=== PATIENT | female | born 1945 | race Caucasian/White ===

== ENCOUNTER → 2021-05-11 08:41 | Outpatient (BNVA) | payer SELFPAY | PROVIDERS: Visit Provider Internal Medicine | DX: Z02.79 Encounter for issue of other medical certificate (principal) ==

== ENCOUNTER → 2021-11-15 09:07 | Outpatient (BNVA) | payer SELFPAY | PROVIDERS: Visit Provider Internal Medicine | DX: Z02.79 Encounter for issue of other medical certificate (principal) ==

== ENCOUNTER → 2022-05-09 08:41 | Outpatient (BNVA) | payer SELFPAY | PROVIDERS: Visit Provider Internal Medicine | DX: Z02.79 Encounter for issue of other medical certificate (principal) ==

== ENCOUNTER 2022-09-06 09:23 | Emergency (ER) | payer MEDICARE, SELFPAY ==
--- NOTE | ~2022-09-06 | XR_ITS ---
EXAMINATION: XR CHEST CLINICAL INFORMATION: Productive cough COMPARISON: None TECHNIQUE: Frontal view of the chest was obtained. FINDINGS: The lungs are fairly well-expanded and clear of acute pneumonic process. The heart size and pulmonary vascularity is normal. There is mild dextro scoliosis dorsal lumbar spine. There is mild spondylosis as well. No lytic or sclerotic process seen. XR/XR chest 1V IMPRESSION: 1. No acute cardiopulmonary process seen. 2. Mild dextro scoliosis dorsal lumbar spine.
[2022-09-06 09:41] VITALS: BP 141/63; PULSE 80; RESP 18; TEMP 36.4; O2SAT 97; BMI 20.1
--- NOTE | 2022-09-06 09:46 | PC.NURSE ---
patient a&ox3, vss, family at bedside, pt awaiting provider
--- NOTE | 2022-09-06 09:57 | ECG_ITS ---
Test Reason : SOB Blood Pressure : / mmHG Vent. Rate : 080 BPM Atrial Rate : 080 BPM P-R Int : 128 ms QRS Dur : 088 ms QT Int : 394 ms P-R-T Axes : 074 064 067 degrees QTc Int : 454 ms Sinus rhythm with occasional Premature ventricular complexes Low voltage QRS RSR' or QR pattern in V1 suggests right ventricular conduction delay Abnormal ECG No previous ECGs available Referred By: Kanika Collazo Electronically Signed By:ROMINA CASTANO MD
--- NOTE | 2022-09-06 09:58 | ED.GENADULT ---
HPI - General Adult General Chief complaint: General Medical Stated complaint: Weakness/Shaky/Fatigued Time Seen by Provider: 09/06/22 09:56 Source: patient Mode of arrival: ambulatory Limitations: no limitations History of Present Illness HPI narrative: 76 yo female with history of DM and HTN who presents to the ER for evaluation of generalized weakness, fatigue, upset stomach/nausea for the last 1 week. She states last week she had a productive cough with white phelgm. Once that resolved after several days she started feeling weak, tired and nauseated. She dry heaved a couple of times last week but never vomited. She has had decreased PO intake. No abdominal pain just upset stomach and no appetite. She has been sleeping more during the day as well as at night. She denies any focal weakness. No fever or chills at home. No chest pain, abdominal pain, SOB, urinary symptoms. No known sick contacts. MD complaint: generalized weakness Onset (ago): week(s) (1) Severity: moderate Relieving factors: rest Exacerbating factors: movement Associated symptoms: cough, loss of appetite, malaise, nausea/vomiting and weakness Treatments prior to arrival: none Related Data Previous Rx's Medication Instructions Recorded cefuroxime axetil 250 mg tablet 250 mg PO BID #10 tabs 09/06/22 ondansetron 4 mg disintegrating 4 mg PO Q8H PRN nausea and 09/06/22 tablet vomiting #10 tabs Allergies Allergy/AdvReac Type Severity Reaction Status Date / Time No Known Allergies Allergy Verified 09/06/22 09:40 Review of Systems Review of Systems: Constitutional: No Fever, No Chills ENT/Mouth: No sore throat, No Rhinorrhea, No Swallowing Difficulty Cardiovascular: No Chest Pain, No SOB, No Orthopnea, No Edema Respiratory: + Cough, + Sputum, No Wheezing, No dyspnea Gastrointestinal: + Nausea, No Vomiting, No Diarrhea, No abdominal Pain, No Hematochezia, No Melena Genitourinary: No Dysuria, No Urinary Frequency, No Hematuria Musculoskeletal: No joint pain, No Myalgias Skin: No Skin Lesions, No rash Neuro: + Weakness, No Numbness, No Dizziness, No Headache Psych: No Anxiety/Panic, No Depression Heme/Lymph: No Bruising, No Lymphadenopathy Endocrine: No Polyuria, No Polydipsia [facility] Past Medical History Medical History (Updated 09/06/22 @ 12:42 by KIRBY Sheppard) Back pain Diabetes Hypertension Social History Social History Alcohol intake: never Smoked in Last 30 Days: Yes Use of substances other than those prescribed or required for medical reasons: No Advance Directives: No Advance Directives Information Provided: Yes Physical Exam ED Vital Signs: Vital Signs - 24 hr 09/06/22 09:41 09/06/22 10:21 09/06/22 11:47 Temperature 97.6 F 98.1 F Pulse Rate 80 68 Respiratory Rate 18 18 18 Blood Pressure 141/63 H 136/60 Pulse Oximetry 97 93 Oxygen Delivery Method Room Air Room Air BMI result Body Mass Index 20.1 Appearance: Alert. Oriented X3. No acute distress. Eyes: Pupils equal, round and reactive to light. ENT: Pharynx normal. Neck: Normal inspection. Neck supple. CVS: Normal heart rate and rhythm. Pulses normal. Respiratory: No respiratory distress. Breath sounds normal. Abdomen: Soft and nontender. +BS x4 Skin: Skin warm and dry. Normal skin color. Normal skin turgor. No rashes. Extremities: No lower extremity edema. Neuro: Oriented X 3. No motor deficit. No sensory deficit. Normal speech and cognition. CN II-XII intact. Course Course Course Narrative: 76-year-old female with history of diabetes and hypertension who presents to the ER for evaluation of generalized weakness, lethargy, nausea, productive cough at home for the last 1 week. On arrival to the ER she is hemodynamically stable, saturating well on room air. Her physical exam is unremarkable. Will plan to workup by getting basic labs, chest x-ray, COVID swab, flu swab & urinalysis. IVF and Zofran have been ordered. Reevaluation(s) Reevaluation #1: Patient is feeling better. Her lab workup is unremarkable. No leukocytosis. Chest x-ray is clear. She is negative for COVID and flu. Urinalysis is showing trace leukocyte esterase, indicating possible urinary tract infection. Pending urine culture, will start empiric Ceftin. Patient lives home alone and would like to be discharged home. She reports her daughter checks in on her as well as a neighbor in the building. She feels safe being discharged home. She will follow-up with her PCP. She is stable for DC home. Medications Administered Discontinued Medications Generic Name Dose Route Start Last Admin Trade Name Leonor PRN Reason Stop Dose Admin Lactated Ringer's 1,000 mls @ 999 mls/hr 09/06/22 10:00 09/06/22 10:17 Lr IV 09/06/22 11:00 999 mls/hr .Q1H1M HEATHER Administration Ondansetron HCl 4 mg 09/06/22 10:54 09/06/22 11:16 Ondansetron Hcl 4 Mg/2 Ml Vial IVPUSH 09/06/22 10:55 4 mg ONCE ONE Administration Medical Decision Making Lab Data Result diagrams: 09/06/22 10:14 09/06/22 10:14 Labs: Lab Results 09/06/22 09/06/22 09/06/22 Range/Units 10:14 10:14 10:14 WBC 6.7 (4.8-10.8) X10*3/uL RBC 3.85 L (4.20-5.50) X10*6/uL Hgb 12.5 (12.0-16.0) g/dl Hct 37.1 (37.0-47.0) % MCV 96.4 (80.0-98.0) fL MCH 32.5 (27.0-33.0) pg MCHC 33.7 (31.0-35.0) g/dl RDW 12.4 (11.0-16.0) % Plt Count 269 (160-400) X10*3/uL MPV 9.4 (9.4-12.3) fL Immature Gran % (Auto) 0.4 (0.0-0.4) % Neut % (Auto) 64.6 (45-73) % Lymph % (Auto) 27.1 (20-40) % Ward % (Auto) 7.0 (2-11) % Eos % (Auto) 0.3 (0-4) % Baso % (Auto) 0.6 (0-2) % Lymph # (Auto) 1.8 (1.2-4.9) X10*3/uL Ward # (Auto) 0.5 (0.1-1.2) X10*3/uL Eos # (Auto) 0.0 (0.0-0.4) X10*3/uL Baso # (Auto) 0.0 (0.0-0.2) X10*3/uL Abs Immat Gran (auto) 0.03 (0.00-0.03) X10*3/uL Absolute Neuts (auto) 4.3 (2.0-8.3) x10*3/uL Absolute Nucleated RBC 0.000 (0.0-0.012) X10*3/uL Nucleated RBC % (auto) 0.0 (0.0-0.2) /100WBC VBG pH (7.32-7.43) VBG pCO2 mmHg VBG pO2 mmHg VBG HCO3 (22-26) mmol/L VBG O2 Saturation % VBG Base Excess mmol/L Sodium 135 (135-145) mmol/L Potassium 4.1 (3.3-5.1) mmol/L Chloride 98 (96-108) mmol/L Carbon Dioxide 24 (22-29) mmol/L Anion Gap 17 (12-20) BUN 17 H (9-16) mg/dL Creatinine 0.73 (0.5-1.4) mg/dL Estim Creat Clear Calc 60.4 Estimated GFR > 60 Random Glucose 166 H (60-115) mg/dL Calcium 8.7 (8.4-10.2) mg/dL Magnesium 1.8 (1.6-2.6) mg/dL Total Bilirubin 0.6 (0.0-1.0) mg/dL Direct Bilirubin 0.2 (0.0-0.5) mg/dL AST 21 (5-31) U/L ALT 8 (0-31) U/L Alkaline Phosphatase 41 (39-117) U/L B-Natriuretic Peptide 28 (<100) pg/mL Total Protein 6.2 L (6.5-8.0) g/dL Albumin 3.8 (3.5-5.0) g/dL Procalcitonin ng/mL Urine Color Urine Appearance Urine pH (5.0-9.0) Ur Specific [place] (1.005-1.025) Urine Protein (Neg-Trace) mg/dL Urine Glucose (UA) (Negative) mg/dL Urine Ketones (Negative) mg/dL Urine Blood (Negative) Urine Nitrite (Negative) Ur Leukocyte Esterase (Negative) Urine RBC (0-2) /HPF Urine WBC (0-5) /HPF Ur Squamous Epith Cells (0-2) /HPF Urine Bacteria (None Seen) Hyaline Casts (0-2) /LPF COVID-19 (DARINEL) (Negative) COVID-19 Clin Com Influenza Type A (PAVEL) (Negative) Influenza Type B (PAVEL) (Negative) Influenza A & B Note 09/06/22 09/06/22 09/06/22 Range/Units 10:14 10:14 10:14 WBC (4.8-10.8) X10*3/uL RBC (4.20-5.50) X10*6/uL Hgb (12.0-16.0) g/dl Hct (37.0-47.0) % MCV (80.0-98.0) fL MCH (27.0-33.0) pg MCHC (31.0-35.0) g/dl RDW (11.0-16.0) % Plt Count (160-400) X10*3/uL MPV (9.4-12.3) fL Immature Gran % (Auto) (0.0-0.4) % Neut % (Auto) (45-73) % Lymph % (Auto) (20-40) % Ward % (Auto) (2-11) % Eos % (Auto) (0-4) % Baso % (Auto) (0-2) % Lymph # (Auto) (1.2-4.9) X10*3/uL Ward # (Auto) (0.1-1.2) X10*3/uL Eos # (Auto) (0.0-0.4) X10*3/uL Baso # (Auto) (0.0-0.2) X10*3/uL Abs Immat Gran (auto) (0.00-0.03) X10*3/uL Absolute Neuts (auto) (2.0-8.3) x10*3/uL Absolute Nucleated RBC (0.0-0.012) X10*3/uL Nucleated RBC % (auto) (0.0-0.2) /100WBC VBG pH (7.32-7.43) VBG pCO2 mmHg VBG pO2 mmHg VBG HCO3 (22-26) mmol/L VBG O2 Saturation % VBG Base Excess mmol/L Sodium (135-145) mmol/L Potassium (3.3-5.1) mmol/L Chloride (96-108) mmol/L Carbon Dioxide (22-29) mmol/L Anion Gap (12-20) BUN (9-16) mg/dL Creatinine (0.5-1.4) mg/dL Estim Creat Clear Calc Estimated GFR Random Glucose (60-115) mg/dL Calcium (8.4-10.2) mg/dL Magnesium (1.6-2.6) mg/dL Total Bilirubin (0.0-1.0) mg/dL Direct Bilirubin (0.0-0.5) mg/dL AST (5-31) U/L ALT (0-31) U/L Alkaline Phosphatase (39-117) U/L B-Natriuretic Peptide (<100) pg/mL Total Protein (6.5-8.0) g/dL Albumin (3.5-5.0) g/dL Procalcitonin 0.05 ng/mL Urine Color Urine Appearance Urine pH (5.0-9.0) Ur Specific [place] (1.005-1.025) Urine Protein (Neg-Trace) mg/dL Urine Glucose (UA) (Negative) mg/dL Urine Ketones (Negative) mg/dL Urine Blood (Negative) Urine Nitrite (Negative) Ur Leukocyte Esterase (Negative) Urine RBC (0-2) /HPF Urine WBC (0-5) /HPF Ur Squamous Epith Cells (0-2) /HPF Urine Bacteria (None Seen) Hyaline Casts (0-2) /LPF COVID-19 (DARINEL) Negative (Negative) COVID-19 Clin Com See Note Influenza Type A (PAVEL) Negative (Negative) Influenza Type B (PAVEL) Negative (Negative) Influenza A & B Note See Note 09/06/22 09/06/22 Range/Units 10:20 11:15 WBC (4.8-10.8) X10*3/uL RBC (4.20-5.50) X10*6/uL Hgb (12.0-16.0) g/dl Hct (37.0-47.0) % MCV (80.0-98.0) fL MCH (27.0-33.0) pg MCHC (31.0-35.0) g/dl RDW (11.0-16.0) % Plt Count (160-400) X10*3/uL MPV (9.4-12.3) fL Immature Gran % (Auto) (0.0-0.4) % Neut % (Auto) (45-73) % Lymph % (Auto) (20-40) % Ward % (Auto) (2-11) % Eos % (Auto) (0-4) % Baso % (Auto) (0-2) % Lymph # (Auto) (1.2-4.9) X10*3/uL Ward # (Auto) (0.1-1.2) X10*3/uL Eos # (Auto) (0.0-0.4) X10*3/uL Baso # (Auto) (0.0-0.2) X10*3/uL Abs Immat Gran (auto) (0.00-0.03) X10*3/uL Absolute Neuts (auto) (2.0-8.3) x10*3/uL Absolute Nucleated RBC (0.0-0.012) X10*3/uL Nucleated RBC % (auto) (0.0-0.2) /100WBC VBG pH 7.40 (7.32-7.43) VBG pCO2 40 mmHg VBG pO2 37 mmHg VBG HCO3 25 (22-26) mmol/L VBG O2 Saturation 62.0 % VBG Base Excess 0.5 mmol/L Sodium (135-145) mmol/L Potassium (3.3-5.1) mmol/L Chloride (96-108) mmol/L Carbon Dioxide (22-29) mmol/L Anion Gap (12-20) BUN (9-16) mg/dL Creatinine (0.5-1.4) mg/dL Estim Creat Clear Calc Estimated GFR Random Glucose (60-115) mg/dL Calcium (8.4-10.2) mg/dL Magnesium (1.6-2.6) mg/dL Total Bilirubin (0.0-1.0) mg/dL Direct Bilirubin (0.0-0.5) mg/dL AST (5-31) U/L ALT (0-31) U/L Alkaline Phosphatase (39-117) U/L B-Natriuretic Peptide (<100) pg/mL Total Protein (6.5-8.0) g/dL Albumin (3.5-5.0) g/dL Procalcitonin ng/mL Urine Color Yellow Urine Appearance Clear Urine pH 5.5 (5.0-9.0) Ur Specific [place] 1.010 (1.005-1.025) Urine Protein Negative (Neg-Trace) mg/dL Urine Glucose (UA) Negative (Negative) mg/dL Urine Ketones Trace (Negative) mg/dL Urine Blood Negative (Negative) Urine Nitrite Negative (Negative) Ur Leukocyte Esterase Trace H (Negative) Urine RBC 0-2 (0-2) /HPF Urine WBC 0-5 (0-5) /HPF Ur Squamous Epith Cells 0-2 (0-2) /HPF Urine Bacteria None Seen (None Seen) Hyaline Casts 0-2 (0-2) /LPF COVID-19 (DARINEL) (Negative) COVID-19 Clin Com Influenza Type A (PAVEL) (Negative) Influenza Type B (PAVEL) (Negative) Influenza A & B Note ECG Data Attestation: I personally reviewed and interpreted this ECG as follows: Interpretation: Normal sinus rhythm with PVCs, ventricular rate 80 beats per minute, normal [place] interval, low voltage QRS, no ST segment elevations or depressions Critical Care Time Critical Care Time Critical Care Time: No Discharge Plan Discharge Clinical Impression: Acute UTI, Weakness Patient Disposition: Home, Self-Care Instructions: Weakness (ED), Urinary Tract Infection in Older Adults (ED) Additional Instructions: Your lab work today was unremarkable. Your chest x-ray was clear. You tested negative for COVID and flu. Your urine test showed evidence of possible urinary tract infection. Take the prescribed antibiotics as directed for this. Complete the entire course. Make sure eating and drinking appropriately at home. Take the prescribed nausea medication as needed for nausea. Stick to a bland diet where not feeling well. Recommend following up with your primary care doctor early next week. If you develop new or worsening symptoms call 911 or come back to the ER for further evaluation. Prescriptions: New cefuroxime axetil 250 mg tablet 250 mg PO BID Qty: 10 0RF ondansetron 4 mg tablet,disintegrating 4 mg PO Q8H PRN (Reason: nausea and vomiting) Qty: 10 0RF
[2022-09-06] MEDS: Lactated Ringers 1,000 ML 999 ML IV (10:17)
--- NOTE | 2022-09-06 10:18 | PC.NURSE ---
iv inserted, labs drawn, ivf hung per order, swabs obtained, pt aware we need urine, call moise within reach, will continue to monitor
[2022-09-06 10:20] LABS: MANUAL DIFF FLAG NO
[2022-09-06 10:21] VITALS: RESP 18
[2022-09-06 10:24] LABS: Venous Blood Gas Refer to POC result
[2022-09-06 10:26] LABS: VBG Base Excess 0.5 mmol/L; VBG HCO3 25 mmol/L (22-26); VBG pCO2 40 mmHg; VBG pO2 37 mmHg
[2022-09-06 10:28] LABS: Basophils Percent Auto 0.6 % (0-2); Eosinophils Percent Auto 0.3 % (0-4); Hematocrit 37.1 % (37.0-47.0); Hemoglobin 12.5 g/dl (12.0-16.0); Imm Gran Abs Auto 0.03 X10*3/uL (0.00-0.03); Imm Gran Pct Auto 0.4 % (0.0-0.4); Lymphocytes Absolute Auto 1.8 X10*3/uL (1.2-4.9); Lymphocytes Percent Auto 27.1 % (20-40); Mean Corpuscular HGB Conc 33.7 g/dl (31.0-35.0); Mean Corpuscular Hemoglobin 32.5 pg (27.0-33.0); Mean Corpuscular Volume 96.4 fL (80.0-98.0); Mean Platelet Volume 9.4 fL (9.4-12.3); Monocytes Absolute Auto 0.5 X10*3/uL (0.1-1.2); Neutrophils Absolute Auto 4.3 x10*3/uL (2.0-8.3); Neutrophils Percent Auto 64.6 % (45-73); Platelet Count 269 X10*3/uL (160-400); Red Blood Count 3.85 X10*6/uL (4.20-5.50); Red Cell Distribution Width 12.4 % (11.0-16.0); White Blood Count 6.7 X10*3/uL (4.8-10.8)
[2022-09-06 10:46] LABS: COVID-19 Test Negative (Negative); IDNOW Serial# 16C4AD1C; Influenza A Negative (Negative); Influenza B2 Negative (Negative)
[2022-09-06 10:55] LABS: Alanine Aminotransferase 8 U/L (0-31); Albumin Level 3.8 g/dL (3.5-5.0); Alkaline Phosphatase 41 U/L (39-117); Anion Gap 17 (12-20); Aspartate Amino Transferase 21 U/L (5-31); Bilirubin Direct 0.2 mg/dL (0.0-0.5); Bilirubin Total 0.6 mg/dL (0.0-1.0); Blood Urea Nitrogen 17 mg/dL (9-16); Calcium 8.7 mg/dL (8.4-10.2); Carbon Dioxide 24 mmol/L (22-29); Chloride 98 mmol/L (96-108); Creatinine Clr Calc Pharmacy 60.4; Estimated Glomerular Filt Rate > 60; Glucose Random 166 mg/dL (60-115); Magnesium 1.8 mg/dL (1.6-2.6); Potassium 4.1 mmol/L (3.3-5.1); Sodium 135 mmol/L (135-145); Total Protein 6.2 g/dL (6.5-8.0)
[2022-09-06 11:00] LABS: B Type Natriuretic Peptide 28 pg/mL (<100)
[2022-09-06 11:12] LABS: Procalcitonin 0.05 ng/mL
[2022-09-06] MEDS: ondansetron HCL 4 MG/2 ML VIAL IVPUSH (11:16)
--- NOTE | 2022-09-06 11:17 | PC.NURSE ---
pt medicated per order, ivf continues to run, urine obtained, will continue to monitor
[2022-09-06 11:31] LABS: Appearance Urine Clear; Color Urine Yellow; Glucose Urine UA Negative (Negative); Leukocyte Esterase Urine Trace (Negative); Nitrite Urine Negative (Negative); PH 5.5 (5.0-9.0); UMIC TRIGGER UACC YES; Urine Blood Negative (Negative); Urine Ketones Trace mg/dL (Negative); Urine Protein Negative (Neg-Trace)
[2022-09-06 11:40] LABS: Bacteria Urine None Seen (None Seen); Hyaline Casts Urine 0-2 /LPF (0-2); RBC Urine 0-2 /HPF (0-2); Squamous Epithelial Cell Urine 0-2 /HPF (0-2); WBC Urine 0-5 /HPF (0-5)
[2022-09-06 11:47] VITALS: BP 136/60; PULSE 68; RESP 18; TEMP 36.7; O2SAT 93
== END 2022-09-06 13:03 | disposition home or self-care (01) ==
PROVIDERS: Physician Assistant; Emergency Provider Emergency Medicine; PCP Internal Medicine
DX: N39.0 Urinary tract infection, site not specified (principal); R06.02 Shortness of breath; R53.83 Other fatigue; Z20.822 Contact with and (suspected) exposure to COVID-19; Z79.899 Other long term (current) drug therapy
CPT/HCPCS: 71045; 80048; 80076; 81001; 82803; 83735; 83880; 84145; 85025; 87502; 87635; 93005; 96361; 96374; 99284; 99285; J2405

== ENCOUNTER 2022-09-09 09:00 | Emergency (ER) | payer MEDICARE, SELFPAY ==
[2022-09-09 09:10] VITALS: BP 145/47; PULSE 87; RESP 19; TEMP 36.6; O2SAT 93; BMI 19.3
[2022-09-09 09:26] LABS: MANUAL DIFF FLAG NO
[2022-09-09 09:28] LABS: Basophils Absolute Auto 0.1 X10*3/uL (0.0-0.2); Basophils Percent Auto 0.8 % (0-2); Eosinophils Absolute Auto 0.1 X10*3/uL (0.0-0.4); Eosinophils Percent Auto 0.8 % (0-4); Hematocrit 38.1 % (37.0-47.0); Hemoglobin 13.1 g/dl (12.0-16.0); Imm Gran Abs Auto 0.02 X10*3/uL (0.00-0.03); Imm Gran Pct Auto 0.3 % (0.0-0.4); Lymphocytes Absolute Auto 1.5 X10*3/uL (1.2-4.9); Lymphocytes Percent Auto 22.4 % (20-40); Mean Corpuscular HGB Conc 34.4 g/dl (31.0-35.0); Mean Corpuscular Hemoglobin 32.8 pg (27.0-33.0); Mean Corpuscular Volume 95.5 fL (80.0-98.0); Mean Platelet Volume 9.3 fL (9.4-12.3); Monocytes Absolute Auto 0.4 X10*3/uL (0.1-1.2); Monocytes Percent Auto 5.3 % (2-11); Neutrophils Absolute Auto 4.7 x10*3/uL (2.0-8.3); Neutrophils Percent Auto 70.4 % (45-73); Platelet Count 322 X10*3/uL (160-400); Red Blood Count 3.99 X10*6/uL (4.20-5.50); Red Cell Distribution Width 12.3 % (11.0-16.0); White Blood Count 6.6 X10*3/uL (4.8-10.8)
[2022-09-09 09:50] LABS: Alanine Aminotransferase 8 U/L (0-31); Albumin Level 4.2 g/dL (3.5-5.0); Alkaline Phosphatase 42 U/L (39-117); Anion Gap 15 (12-20); Aspartate Amino Transferase 22 U/L (5-31); Bilirubin Direct < 0.2 mg/dL (0.0-0.5); Bilirubin Total 0.5 mg/dL (0.0-1.0); Blood Urea Nitrogen 13 mg/dL (9-16); Calcium 9.2 mg/dL (8.4-10.2); Carbon Dioxide 28 mmol/L (22-29); Chloride 97 mmol/L (96-108); Creatinine Clr Calc Pharmacy 58.1; Estimated Glomerular Filt Rate > 60; Glucose Random 162 mg/dL (60-115); Potassium 4.1 mmol/L (3.3-5.1); Sodium 136 mmol/L (135-145); Total Protein 6.9 g/dL (6.5-8.0)
[2022-09-09 11:37] LABS: Lipase 48 U/L (8-78)
== END 2022-09-09 14:50 | disposition left against medical advice (07) ==
PROVIDERS: Emergency Provider Emergency Medicine; PCP Internal Medicine
DX: R53.1 Weakness (principal); E11.9 Type 2 diabetes mellitus without complications; I10 Essential (primary) hypertension; Z87.440 Personal history of urinary (tract) infections
CPT/HCPCS: 36415; 80048; 80076; 83690; 85025; 99281; 99283